=== PATIENT | female | born 1960 | race Caucasian/White ===

== ENCOUNTER 2017-12-18 08:00 | Outpatient (CLI) | payer BC, OTHER | END 2017-12-18 08:01 | disposition home or self-care (01) | LOC: LAB.R 08:00 | PROVIDERS: ATTEND Family Medicine | DX: N89.8 Other specified noninflammatory disorders of vagina (principal) | CPT/HCPCS: 87480; 87510; 87660 ==

== ENCOUNTER 2018-03-10 14:34 | Outpatient (CLI) | payer BC ==
--- NOTE | 2018-03-12 16:31 | Mammography Report ---
Procedure Date: 03/10/2018 Accession Number: [id number] / [id number] Procedure: MGN - Screening Mammo Dig Bilat CPT Code: FULL RESULT: EXAM: Screening Mammo Dig Bilat DATE: 03/10/2018 2:48 PM CLINICAL HISTORY: 57-year-old female presents for screening mammogram. TECHNIQUE: Bilateral CC and MLO views were obtained. COMPARISON: 06/04/2016, 03/03/2013, 02/01/2011, 12/20/2009. FINDINGS: The breasts demonstrate scattered fibroglandular densities bilaterally. Coarse typically benign calcifications are again noted. No suspicious masses, clustered microcalcifications, or regions of architectural distortion are identified. IMPRESSION: Benign findings RECOMMENDATION: Routine annual screening unless otherwise clinically indicated. BIRADS CATEGORY 2: Benign findings STANDARD QUALIFYING STATEMENTS: 1. This examination was reviewed with the aid of Computer-Aided Detection (CAD). 2. A negative or benign imaging report should not delay biopsy if clinically suspicious findings are present. Consider surgical consultation if warrented. More than 5% of cancers are not identified by imaging. 3. Dense breasts may obscure an underlying neoplasm.
== END 2018-03-10 14:35 | disposition home or self-care (01) ==
LOC: DI.N 14:34
PROVIDERS: ATTEND Radiology Diagnostic Radiology
DX: Z12.31 Encounter for screening mammogram for malignant neoplasm of breast (principal)
CPT/HCPCS: 77067

== ENCOUNTER 2018-03-18 08:50 | Outpatient (CLI) | payer BC ==
--- NOTE | 2018-03-18 14:01 | MRI Report ---
Procedure Date: 03/18/2018 Accession Number: [id number] / [id number] Procedure: MRI - Knee RT W/O CPT Code: FULL RESULT: EXAM: RIGHT KNEE MRI WITHOUT CONTRAST EXAM DATE: 03/18/2018 10:33 AM. CLINICAL HISTORY: Pain in right knee. COMPARISON: KNEE 4 VIEW RT 11/10/2013. TECHNIQUE: Multiplanar, multisequence T1-weighted and fluid-sensitive sequences of the knee without contrast. Other: None. FINDINGS: Bones: There is subchondral edema and cyst formation in the posterior margin of the medial tibial condyle, as well as in the medial margin. There is overlying sclerosis of the subchondral bone. There is adjacent marrow edema. There are small medial and lateral compartment osteophytes. Articular Cartilage: There is full-thickness erosion of the hyaline cartilage of the medial half of the medial femoral and tibial condyle. There is moderate thinning of the remainder of the medial compartment cartilage. There is mild to moderate lateral compartment cartilage thinning. There is mild surface erosion of the patellofemoral cartilage. Medial Meniscus: There is an incomplete radial tear of the posterior horn of the medial meniscus immediately medial to the posterior root attachment. There is a complex tear of the remainder of the posterior horn. There is a horizontal tear of the body which is partially extruded. Lateral Meniscus: The lateral meniscus is intact. Cruciate Ligaments: Complete rupture of the anterior cruciate ligament. The posterior cruciate ligament appears unremarkable. Collateral Ligaments: There is a 9 x 28 x 10 mm fluid collection within the fibers of the medial collateral ligament. It has predominantly low T1 and high T2 signal. The findings are suggestive of a prior grade 2 tear of the medial collateral ligament with a periarticular synovial cyst within the ligament. Lateral collateral ligament appears unremarkable. Tendons: The quadriceps, patellar, semimembranosus, and popliteus tendons are unremarkable. Musculature: No edema or fatty atrophy. Other: There is a moderate-sized joint effusion. No popliteal cyst. No loose bodies. The medial and lateral retinacula are intact. The subcutaneous tissues and fat pads are unremarkable. IMPRESSION: 1. Moderate medial compartment osteoarthritis. Mild lateral and patellofemoral compartment osteoarthritis. 2. Complete rupture of the ACL. 3. Grade 2 tear of the MCL with an intraligamentous fluid collection. 4. Degenerative tearing and extrusion of the medial meniscus. [facility]
== END 2018-03-18 08:51 | disposition home or self-care (01) ==
LOC: DI 08:50
PROVIDERS: ATTEND Orthopaedic Surgery
DX: M17.11 Unilateral primary osteoarthritis, right knee (principal); S83.511A Sprain of anterior cruciate ligament of right knee, initial encounter; S83.411A Sprain of medial collateral ligament of right knee, initial encounter; M23.303 Other meniscus derangements, unspecified medial meniscus, right knee

== ENCOUNTER 2018-08-27 08:00 | Outpatient (CLI) | payer BC | END 2018-08-27 23:59 | disposition home or self-care (01) | LOC: LAB.WCP 08:00 | PROVIDERS: ATTEND Physician Assistant Medical | DX: R31.9 Hematuria, unspecified (principal) | CPT/HCPCS: 87086; 87181 ==

== ENCOUNTER 2018-12-18 08:00 | Outpatient (CLI) | payer BC | END 2018-12-18 23:59 | disposition home or self-care (01) | LOC: LAB.R 08:00 | PROVIDERS: ATTEND Obstetrics & Gynecology | DX: L29.2 Pruritus vulvae (principal) | CPT/HCPCS: 87480; 87510; 87660 ==

== ENCOUNTER 2020-04-13 10:52 | Outpatient (CLI) | payer OTHER ==
[2020-04-13 11:04] LABS: BASOPHILS % (AUTO) 0.8 %; EOSINOPHILS # (AUTO) 0.1 10^3/uL (0.0-0.7); EOSINOPHILS % (AUTO) 3.3 %; HGB - HEMOGLOBIN 12.5 g/dL (12.0-16.0); LYMPHOCYTES # (AUTO) 1.1 10^3/uL (1.5-3.5); LYMPHOCYTES % (AUTO) 31.1 %; MEAN CORPUSCULAR HEMOGLOBIN 32.8 pg (27.0-31.0); MEAN CORPUSCULAR HGB CONC 33.9 g/dL (32.0-36.0); MEAN CORPUSCULAR VOLUME 96.9 fL (81.0-99.0); MEAN PLATELET VOLUME 9.6 fL (7.9-10.8); MONOCYTES # (AUTO) 0.5 10^3/uL (0.0-1.0); MONOCYTES % (AUTO) 13.1 %; NEUTROPHILS # (AUTO) 1.9 10^3/uL (1.5-6.6); NEUTROPHILS % (AUTO) 51.4 %; PLT - PLATELET COUNT 207 10^3/uL (130-450); RED BLOOD COUNT 3.81 10^6/uL (4.20-5.40); RED CELL DISTRIBUTION WIDTH 12.7 % (12.0-15.0); WHITE BLOOD COUNT 3.7 x10^3/uL (4.8-10.8)
== END 2020-04-13 10:53 | disposition home or self-care (01) ==
LOC: LAB 10:52
PROVIDERS: ATTEND Orthopaedic Surgery
DX: Z01.818 Encounter for other preprocedural examination (principal)
CPT/HCPCS: 36415; 80051; 85025; 93005

== ENCOUNTER 2022-04-17 08:00 | Outpatient (CLI) | payer OTHER | END 2022-04-17 23:59 | disposition home or self-care (01) | LOC: LAB.N 08:00 | PROVIDERS: ATTEND Nurse Practitioner | DX: L08.89 Other specified local infections of the skin and subcutaneous tissue (principal) | CPT/HCPCS: 87070; 87205 ==

== ENCOUNTER 2022-07-23 12:35 | Outpatient (CLI) | payer OTHER ==
--- NOTE | 2022-07-23 13:33 | XRAY Report ---
PROCEDURE: Tib/Fib LT INDICATIONS: L LOWER LEG PX TECHNIQUE: 2 views of the tibia and fibula were acquired. COMPARISON: None FINDINGS: Bones: No fractures or dislocations. No suspicious bony lesions. Soft tissues: No suspicious soft tissue calcifications or masses. IMPRESSION: Normal left tibia and fibula. Reviewed by: Yakov Hogue on 07/23/2022 1:32 PM [facility] Approved by: Yakov Hogue on 07/23/2022 1:32 PM [facility] Station ID: [id number]
== END 2022-07-23 12:36 | disposition home or self-care (01) ==
LOC: DI.N 12:35
PROVIDERS: ATTEND Naturopath
DX: M79.605 Pain in left leg (principal); L08.89 Other specified local infections of the skin and subcutaneous tissue

== ENCOUNTER 2024-03-02 08:27 | Outpatient (CLI) | payer OTHER ==
--- NOTE | 2024-03-03 11:00 | Mammography Report ---
BILATERAL DIGITAL SCREENING MAMMOGRAM 3D/2D: 03/02/2024 CLINICAL: Routine screening. Comparison is made to exams dated: 03/04/2022 mammogram, 03/10/2018 mammogram, 06/04/2016 mammogram, a nd 03/03/2013 mammogram - [facility]. There are scattered areas of fibroglandular density in both breasts (category b / 25%-50% glandular t issue). No significant masses, calcifications, or other findings are seen in either breast. There has been no significant interval change. IMPRESSION: NEGATIVE There is no mammographic evidence of malignancy. A 1 year screening mammogram is recommended. Based on the Tyrer Cuzick model (a risk assessment model) the patient's lifetime risk is 5.8% and her 10 year risk is 2.4%. According to the ACR, ACS, and NCCN guidelines, an annual breast MRI exam brittany g with mammogram is recommended if the patient's lifetime risk is 20% or greater. This exam was interpreted at Station ID: [id number]. NOTE: For mammograms, a report in lay terms will be sent to the patient. Approximately 15% of breast malignancies will not be visualized mammographically. In the management of a palpable breast mass, a negative mammogram must not discourage biopsy of a clinically suspicious lesion. Electronically Signed By: Gavino yen/brenden:03/02/2024 08:59:13 letter sent: No_Letter ACR BI-RADS Category 1: Negative 3341F PARENCHYMAL PATTERN: (A) - The breast(s) demonstrate(s) scattered fibroglandular densities. BI-RADS CATEGORY: (1) - 1 RECOMMENDATION: (ANNUAL) - Recommend routine annual screening mammography. [id number] 1 year screening LATERALITY: (B)
== END 2024-03-02 08:28 | disposition home or self-care (01) ==
LOC: DI.N 08:27
DX: Z12.31 Encounter for screening mammogram for malignant neoplasm of breast (principal); R92.323 Mammographic fibroglandular density, bilateral breasts